=== PATIENT | female | born 1945 | race Caucasian/White ===

== ENCOUNTER 2018-03-28 13:54 | Emergency (ER) | payer OTHER ==
--- NOTE | 2018-03-28 14:11 | EDPHY ---
H & P Stated Complaint: c/o onset of sharp L quaker pain, then memory loss and confusion, improved Time Seen by Provider: 03/28/18 14:11 HPI/ROS: CHIEF COMPLAINT: Headache, transient confusion HISTORY OF PRESENT ILLNESS: The patient presents the ED after she developed a left-sided headache with transient confusion. The patient was having some difficulty remembering the names of her daughters. That has resolved. She was experiencing no peripheral numbness or weakness. She was experiencing no slurred speech. She had no complaints of vision loss. The patient has had this occurred several times over the years. She has had extensive workup in the past without a clear diagnosis. The patient certainly is had symptoms which seem to suggest transient global amnesia although the patient does not recall receiving this particular diagnosis. The patient denies any history of fall or trauma. She denies additional acute complaints aside from the persistence of a mild left temporal headache. REVIEW OF SYSTEMS: A comprehensive 10 point review of systems is otherwise negative aside from elements mentioned in the history of present illness. Source: Patient Exam Limitations: No limitations - Medical/Surgical History Other PMH: hyper or hypothyroid, anxiety/depression - Social History Smoking Status: Never smoked - Physical Exam Exam: General Appearance: Alert, no distress Eyes: Pupils equal and round no pallor or injection ENT, Mouth: Mucous membranes moist Respiratory: There are no retractions, lungs are clear to auscultation Cardiovascular: Regular rate and rhythm Gastrointestinal: Abdomen is soft and nontender, no masses, bowel sounds normal Neurological: A&O, normal motor function, normal sensory exam, normal cranial nerves, NIH stroke scale 0 Skin: Warm and dry, no rashes Musculoskeletal: Neck is supple nontender Extremities: symmetrical, full range of motion Psychiatric: Patient is oriented X 3, there is no agitation Constitutional: Initial Vital Signs Temperature (C) 36.3 C 03/28/18 13:58 Heart Rate 61 03/28/18 13:58 Respiratory Rate 18 03/28/18 13:58 Blood Pressure 162/80 H 03/28/18 13:58 O2 Sat (%) 98 03/28/18 13:58 O2 Delivery Mode Room Air Allergies/Adverse Reactions: narc pain meds Allergy (Uncoded 03/28/18 14:08) Medical Decision Making - Diagnostics Imaging Results: Imaging Impressions Head CT 03/28/18 14:30 Impression: No evidence for acute intracranial abnormality. Minimal periventricular white matter change can be seen with aging or small vessel ischemic disease. Results called and discussed with Farrukh Gonzales on 03/28/2018, 14:57. Head CTA 03/28/18 14:30 Impression: 1. Mild atherosclerotic change in the right carotid artery with no significant stenosis. No flow limiting stenosis in either carotid artery or vertebral artery or evidence for dissection. 2. 5.5 mm noncalcified nonspecific pulmonary nodule and another smaller one seen are seen in the superior segment right lower lobe. Consider follow-up chest CT in one year. Per Fleischner Society criteria, no follow up is required. Measurement of carotid stenosis is based on the residual internal carotid diameter with [place] Symptomatic Carotid Endarterectomy Trial (NASCET) based stenosis levels. CT Angiography of the Brain Clinical Indications: Left temporal headache, confusion. Memory difficulty, difficulty finding words, possible CVA . Technique: CT angiogram of the brain was performed with the uneventful intravenous administration of 100 mL Isovue-370 contrast. Multiplanar reconstructions including 3D reconstructions performed and evaluated on [employer] workstation in order to better evaluate the [place] vessels. Images were manipulated by the radiologist at the computer workstation. Dose reduction techniques were utilized. Findings: Major vessels of the [place] are adequately displayed, demonstrating no evidence of aneurysm, vascular malformation, flow-limiting stenosis, or occlusion. Bilateral cavernous internal carotid arteries and vertebrobasilar system demonstrates no evidence of flow-limiting stenosis, aneurysm, occlusion or dissection. Superior sagittal sinus, transverse sinuses, and major veins demonstrate no evidence of intraluminal thrombi. Impression: Negative CT angiogram of the brain. Results called and discussed with Dr. Farrukh Gonzales on 03/28/2018 at 1500 hours. Neck CTA 03/28/18 14:30 Impression: 1. Mild atherosclerotic change in the right carotid artery with no significant stenosis. No flow limiting stenosis in either carotid artery or vertebral artery or evidence for dissection. 2. 5.5 mm noncalcified nonspecific pulmonary nodule and another smaller one seen are seen in the superior segment right lower lobe. Consider follow-up chest CT in one year. Per Fleischner Society criteria, no follow up is required. Measurement of carotid stenosis is based on the residual internal carotid diameter with [place] Symptomatic Carotid Endarterectomy Trial (NASCET) based stenosis levels. CT Angiography of the Brain Clinical Indications: Left temporal headache, confusion. Memory difficulty, difficulty finding words, possible CVA . Technique: CT angiogram of the brain was performed with the uneventful intravenous administration of 100 mL Isovue-370 contrast. Multiplanar reconstructions including 3D reconstructions performed and evaluated on [employer] workstation in order to better evaluate the [place] vessels. Images were manipulated by the radiologist at the computer workstation. Dose reduction techniques were utilized. Findings: Major vessels of the [place] are adequately displayed, demonstrating no evidence of aneurysm, vascular malformation, flow-limiting stenosis, or occlusion. Bilateral cavernous internal carotid arteries and vertebrobasilar system demonstrates no evidence of flow-limiting stenosis, aneurysm, occlusion or dissection. Superior sagittal sinus, transverse sinuses, and major veins demonstrate no evidence of intraluminal thrombi. Impression: Negative CT angiogram of the brain. Results called and discussed with Dr. Farrukh Gonzales on 03/28/2018 at 1500 hours. ED Course/Re-evaluation: Patient presents to the ED after an episode of transient confusion associated with a sharp left temporal headache. She is noted to be neurologically intact upon arrival. Historically the patient has had similar events in the past without a specific diagnosis. Given the patient's complaint of an acute headache she was taken for head CT scan without contrast and a CT angiogram of the head neck. Re-evaluated the patient at 3:40 p.m.: CT scan of the brain demonstrates no evidence of intracranial hemorrhage, mass or other acute abnormality Angiographic studies of the head neck are also normal. At 3:40 p.m. The patient's neurologic examination is normal, her memory recall is normal, she has no appreciable deficits, evidence of meningitis or other concerning findings on exam. Discussion: The patient presents to the ED with a migraine variant or possible TGA event. At this point time I do feel she can be discharged home. She is advised to return to the emergency department for any progressive neurologic symptoms or other concerns. Differential Diagnosis: Differential diagnosis considered includes intracranial hemorrhage, stroke, carotid dissection, aneurysm rupture, migraine variant, transient global amnesia - Data Points Laboratory Results: 03/28/18 14:24 POC Hgb 16.0 gm/dL gm/dL (12.6-16.3) POC Hct 47 % % (38-47) POC Sodium 139 mEq/L mEq/L (135-145) POC Potassium 3.6 mEq/L mEq/L (3.3-5.0) POC Chloride 102 mEq/L mEq/L (97-110) POC BUN 16 mg/dL mg/dL (7-23) POC Creatinine 0.7 mg/dL mg/dL (0.6-1.0) POC Glucose 91 mg/dL mg/dL (70-100) Point of Care Test Results: Chemistry 03/28/18 14:24 POC Sodium 139 mEq/L mEq/L (135-145) POC Potassium 3.6 mEq/L mEq/L (3.3-5.0) POC Chloride 102 mEq/L mEq/L (97-110) POC BUN 16 mg/dL mg/dL (7-23) POC Creatinine 0.7 mg/dL mg/dL (0.6-1.0) POC Glucose 91 mg/dL mg/dL (70-100) ISTAT H&H 03/28/18 14:24 POC Hgb 16.0 gm/dL gm/dL (12.6-16.3) POC Hct 47 % % (38-47) Departure - Departure Disposition: Home, Routine, Self-Care Clinical Impression: TGA (transient global amnesia), Headache, Acute ischemic stroke Condition: Good Instructions: Acute Headache (ED) Additional Instructions: 1. The CT scan today demonstrates no evidence of bleeding, mass, tumor or obvious stroke. 2. I do believe the your experiencing a migraine variant or possibly transient global amnesia. These are typically benign self-limited conditions. 3. Please return to the ED for the development of any progressive neurologic symptoms including numbness, weakness, difficulty with speech, vision loss, difficulty with ambulation.
[2018-03-28] MEDS ORDERED: IOPAMIDOL (ISOVUE 370) 100 ML BTL IV ONE (14:32)
[2018-03-28 15:51] VITALS: BP 159/79
== END 2018-03-28 15:51 | disposition home or self-care (01) ==
DX: I63.9 Cerebral infarction, unspecified (principal); G45.4 Transient global amnesia; R51 Headache
CPT/HCPCS: 70450; 70496; 70498; 99285; Q9967; 82435-PO; 82565-PO; 82947-PO; 84132-PO; 84295-PO; 84520-PO; 85014-PO